=== PATIENT | male | born 1965 | race African-American/Black ===

== ENCOUNTER 2024-10-04 12:55 | Emergency (ER) | payer OTHER ==
[~2024-10-04] VITALS: Ht 193 cm; Wt 105.2 kg
[2024-10-04] MEDS ORDERED: SWABABLE VALVE TRANSFER SET EA MC ONE (13:19)
[2024-10-04] MEDS ORDERED: IV NORMAL SALINE 250 ML IV ONE (13:19)
[2024-10-04] MEDS ORDERED: IOHEXOL 350 100 ML INFUS..BTL ONE (13:19)
[2024-10-04 13:41] LABS: BASOPHILS % (AUTO) 0.4 % (0.0-2.0); EOSINOPHILS # (AUTO) 0.1 K/uL (0.0-0.7); EOSINOPHILS % (AUTO) 2.1 % (0.0-7.0); HEMATOCRIT 37.3 % (36.7-47.1); HEMOGLOBIN 12.3 g/dL (12.5-16.3); LYMPHOCYTES % (AUTO) 52.9 % (20.5-51.5); MEAN CORPUSCULAR HEMOGLOBIN 29.4 uug (23.8-33.4); MEAN CORPUSCULAR HGB CONC 33 g/dL (32.5-36.3); MONOCYTES # (AUTO) 0.4 K/uL (0.1-1.30); MONOCYTES % (AUTO) 7.8 % (0.0-11.0); NEUTROPHILS # (AUTO) 2.1 K/uL (1.8-8.9); NEUTROPHILS % (AUTO) 36.8 % (38.5-71.5); PLATELET COUNT (AUTO) 222 K/uL (152-348); RED BLOOD CELL COUNT(AUTO) 4.19 MIL/uL (4.06-5.63); RED CELL DISTRIBUTION WIDTH 13.9 % (12.1-16.2); WHITE BLOOD COUNT (AUTO) 5.7 K/uL (3.6-10.2)
[2024-10-04 13:45] LABS: DIFFERENTIAL COMMENT 1
[2024-10-04 13:49] LABS: CALCIUM 8.2 mg/dL (8.5-10.1); CARBON DIOXIDE 23 mmol/L (21-32); CHLORIDE 103 mmol/L (98-107); CREATININE 1.3 mg/dL (0.6-1.3); GLUCOSE 190 mg/dL (74-106); POTASSIUM 3.6 mmol/L (3.5-5.1); SODIUM SERUM 137 mmol/L (136-145); UREA NITROGEN, BLOOD 12 mg/dL (7-18)
[2024-10-04 13:58] LABS: ALANINE AMINOTRANSFERASE 24 U/L (16-63); ALBUMIN 3.5 g/dL (3.4-5.0); ALKALINE PHOSPHATASE 74 U/L (50-136); ASPARTATE AMINOTRANSFERASE 17 U/L (15-37); BILIRUBIN,DIRECT 0.1 mg/dL (0.0-0.2); BILIRUBIN,TOTAL 0.2 mg/dL (0.2-1.0); TOTAL PROTEIN, SERUM 7.3 g/dL (6.4-8.2)
[2024-10-04 14:00] LABS: *BILIRUBIN,URIN NEGATIVE (NEGATIVE); *CLARITY,URINE CLEAR (CLEAR); *COLOR,URINE YELLOW (YELLOW); *KETONES,URINE NEGATIVE (NEGATIVE); *PROTEIN,URINE NEGATIVE (NEGATIVE); *UROBILINOGEN,URINE 0.2 E.U./dl (NORMAL); LEUKOCYTE ESTERASE ,URINE NEGATIVE (NEGATIVE); NITRITE, URINE NEGATIVE (NEGATIVE); UGLUCOSE NEGATIVE (NEGATIVE)
[2024-10-04 14:03] LABS: *BLOOD, URINE TRACE (NEGATIVE)
[2024-10-04 14:04] LABS: BACTERIA,URINE FEW /HPF (NONE SEEN); WBC,URINE 0-3 /HPF (0-3)
[2024-10-04 16:13] VITALS: BP 138/88; TEMP 98; O2SAT 100
== END 2024-10-04 16:15 | disposition home or self-care (01) ==
LOC: ER 12:55
DX: I51.7 Cardiomegaly (principal); I10 Essential (primary) hypertension; R73.9 Hyperglycemia, unspecified; R27.0 Ataxia, unspecified; Z20.822 Contact with and (suspected) exposure to COVID-19
CPT/HCPCS: 99291; 70496; 71045; 87426; 80076; 80048; 81001; 82962; 85025; 85730; 84484; 36415; 70498; 93005; 70450; Q9967; A4606; A4663

== ENCOUNTER 2025-01-08 17:42 | Emergency (ER) | payer OTHER ==
[~2025-01-08] VITALS: Ht 185.4 cm; Wt 95.3 kg
[2025-01-08] MEDS ORDERED: IBUP-1957 PO (18:33)
[2025-01-08] MEDS ORDERED: META-25 PO (18:33)
[2025-01-08 20:32] VITALS: BP 152/81; O2SAT 99
== END 2025-01-08 20:25 | disposition home or self-care (01) ==
LOC: ER 17:59
DX: S13.4XXA Sprain of ligaments of cervical spine, initial encounter (principal); V89.2XXA Person injured in unspecified motor-vehicle accident, traffic, initial encounter; Y93.89 Activity, other specified; Y92.488 Other paved roadways as the place of occurrence of the external cause; Y99.8 Other external cause status
CPT/HCPCS: A4606; A4663